=== PATIENT | male | born 1985 | race African-American/Black ===

== ENCOUNTER 2019-02-02 11:59 | Emergency (ER) | payer SELFPAY ==
[2019-02-02] MEDS ORDERED: LIDOCAINE 1% MPF 5 ML VIAL ONE (13:41)
[2019-02-02] MEDS ORDERED: CEPHALEXIN 250 MG CAP ONE (13:41)
[2019-02-02] MEDS ORDERED: SMZ./TMP. 800/160 MG TABLET ONE (13:42)
--- NOTE | 2019-02-02 14:09 | EDPHYS ---
Physician Documentation [facility] Name: Corky Barajas Age: 33 yrs Sex: Male : 1985 Arrival Date: 02/02/2019 Time: 12:02 Bed 30 Private MD: ED Physician Ulisses Wong HPI: 02/02 13:23 This 33 yrs old Black Male presents to ER via Ambulatory with complaints of Insect Bite.kb 13:23 The patient presents with an abscess of the left axilla. Description: draining, kb erythematous, swollen, warm. Onset: The symptoms/episode began/occurred 3 day(s) ago. Possible cause(s): unknown. Associated signs and symptoms: Pertinent positives: drainage, erythema, swelling. Modifying factors: the symptoms are alleviated by nothing, the symptoms are aggravated by movement, pressure, squeezing the lesion and expressing the contents, touching. Severity of symptoms: At their worst the symptoms were moderate, in the emergency department the symptoms are unchanged. The patient has not experienced similar symptoms in the past. The patient has not recently seen a physician. Historical: - Allergies: 12:07 No Known Allergies; aj1 - Home Meds: 12:07 None [Active]; aj1 - PMHx: 12:07 None; aj1 - PSHx: 12:07 None; aj1 - Immunization history:: Flu vaccine is up to date. - Social history:: Smoking status: Patient uses tobacco products, smokes one-half pack cigarettes per day. - Ebola Screening: : Patient denies travel to an Ebola-affected area in the 21 days before illness onset. ROS: 13:22 Constitutional: Negative for fever, chills, and weight loss, Neck: Negative for injury, kb pain, and swelling, Cardiovascular: Negative for chest pain, palpitations, and edema, Respiratory: Negative for shortness of breath, cough, wheezing, and pleuritic chest pain, Abdomen/GI: Negative for abdominal pain, nausea, vomiting, diarrhea, and constipation, : Negative for injury, bleeding, discharge, and swelling, MS/Extremity: Negative for injury and deformity, Neuro: Negative for headache, weakness, numbness, tingling, and seizure. 13:22 Skin: Positive for abscess, of the left axilla. Exam: 13:22 Constitutional: This is a well developed, well nourished patient who is awake, alert, kb and in no acute distress. Head/Face: Normocephalic, atraumatic. Neck: Trachea midline, no thyromegaly or masses palpated, and no cervical lymphadenopathy. Supple, full range of motion without nuchal rigidity, or vertebral point tenderness. No Meningismus. Chest/axilla: Normal chest wall appearance and motion. Nontender with no deformity. No lesions are appreciated. Cardiovascular: Regular rate and rhythm with a normal S1 and S2. No gallops, murmurs, or rubs. Normal PMI, no JVD. No pulse deficits. Respiratory: Lungs have equal breath sounds bilaterally, clear to auscultation and percussion. No rales, rhonchi or wheezes noted. No increased work of breathing, no retractions or nasal flaring. Abdomen/GI: Soft, non-tender, with normal bowel sounds. No distension or tympany. No guarding or rebound. No evidence of tenderness throughout. MS/ Extremity: Pulses equal, no cyanosis. Neurovascular intact. Full, normal range of motion. Neuro: Awake and alert, GCS 15, oriented to person, place, time, and situation. Cranial nerves II-XII grossly intact. Motor strength 5/5 in all extremities. Sensory grossly intact. Cerebellar exam normal. Normal gait. 13:22 Skin: abscess, that is moderate sized, of the left axilla, with drainage, with fluctuance, with induration. Vital Signs: 12:07 BP 144 / 91; Pulse 70; Resp 18; Temp 97.5; Pulse Ox 97% on R/A; Weight 98.88 kg (R); aj1 Height 6 ft. 2 in. (187.96 cm) (R); 14:09 BP 121 / 92; Pulse 72; Resp 16 S; Temp 97.9(O); Pulse Ox 98% on R/A; ca1 12:07 Body Mass Index 27.99 (98.88 kg, 187.96 cm) aj1 Procedures: 14:07 I \T\ D: Incision and drainage was performed for an abscess of the left axilla. Prepped kb with Betadine, Anesthetized with 2 ml's 1% Lidocaine. Incised with #11 blade. Drained moderate amount purulent fluid. Packed with iodoform gauze, Dressing: sterile 4x4 gauze, the patient tolerated the procedure well. MDM: 13:01 Patient medically screened. kb 13:22 Data reviewed: vital signs, nurses notes. Data interpreted: Pulse oximetry: on room air kb is 97 %. Interpretation: normal. ED course: Moderate amount of purulent drainage expressed before I\T\D. Still moderate fluctuance. . 14:07 Counseling: I had a detailed discussion with the patient and/or guardian regarding: the kb historical points, exam findings, and any diagnostic results supporting the discharge/admit diagnosis, the need for outpatient follow up, a general surgeon, to return to the emergency department if symptoms worsen or persist or if there are any questions or concerns that arise at home. 02/02 13:08 Order name: Wound Culture 02/02 13:21 Order name: I\T\D Setup; Complete Time: 13:24 kb Administered Medications: 13:29 Drug: Bactrim (160 mg-800 mg (DS) 1 tablet Route: PO; ca1 14:08 Follow up: Response: No adverse reaction ca1 13:29 Drug: KeFLEX 500 mg Route: PO; ca1 14:08 Follow up: Response: No adverse reaction ca1 14:07 Drug: Lidocaine (1 %) 5 mg {Note: Aministered by NP. Vidhi} Route: Infiltration; ca1 Disposition: 14:34 Co-signature as Attending Physician, Ulisses Wong MD. rn Disposition: 02/02/19 14:08 Discharged to Home. Impression: Cutaneous abscess of left axilla. - Condition is Stable. - Discharge Instructions: Skin Abscess, [id number], Incision and Drainage, Care After. - Prescriptions for Keflex 500 mg Oral Capsule - take 1 capsule by ORAL route every 8 hours for 10 days; 30 capsule. Bactrim DS 800- 160 mg Oral Tablet - take 1 tablet by ORAL route every 12 hours for 10 days; 20 tablet. Tramadol 50 mg Oral Tablet - take 1 tablet by ORAL route every 8 hours as needed; 12 tablet. - Medication Reconciliation Form, Thank You Letter, Antibiotic Education, Prescription Opioid Use form. - Follow up: Emergency Department; When: As needed; Reason: Worsening of condition. Follow up: Private Physician; When: 2 - 3 days; Reason: Recheck today's complaints, Continuance of care, Re-evaluation by your physician. Signatures: Dispatcher [employer] EDVdihi Wagner GLUE MILL OPERATOR-C GLUE MILL OPERATOR-CkKathie Molina, RN RN aj1 Ulisses Wong MD MD rn Acob, MARIA INES Larson RN ca1 Corrections: (The following items were deleted from the chart) 14:14 14:08 02/02/2019 14:08 Discharged to Home. Impression: Cutaneous abscess of left ca1 axilla. Condition is Stable. Forms are Medication Reconciliation Form, Thank You Letter, Antibiotic Education, Prescription Opioid Use. Follow up: Emergency Department; When: As needed; Reason: Worsening of condition. Follow up: Private Physician; When: 2 - 3 days; Reason: Recheck today's complaints, Continuance of care, Re-evaluation by your physician. kb
--- NOTE | 2019-02-02 14:09 | ER ---
Nurse's Notes [facility] Name: Corky Barajas Age: 33 yrs Sex: Male : 1985 Arrival Date: 02/02/2019 Time: 12:02 Bed 30 Private MD: Diagnosis: Cutaneous abscess of left axilla Presentation: 02/02 12:05 Presenting complaint: Patient states: "My arm is swollen. I've been having this pain aj1 for 3 days, I don't know if its a spider bite of what" Abscess noted to left axilla. Denies any drainage, fever. Transition of care: patient was not received from another setting of care. Onset of symptoms was January 2019. Risk Assessment: Do you want to hurt yourself or someone else? Patient reports no desire to harm self or others. Initial Sepsis Screen: Does the patient meet any 2 criteria? No. Patient's initial sepsis screen is negative. Does the patient have a suspected source of infection? No. Patient's initial sepsis screen is negative. Care prior to arrival: None. 12:05 Method Of Arrival: Ambulatory aj1 12:05 Acuity: TICO 4 aj1 Triage Assessment: 12:07 General: Appears in no apparent distress. uncomfortable, Behavior is calm, cooperative, aj1 appropriate for age. Pain: Complains of pain in left axilla Pain currently is 7 out of 10 on a pain scale. Neuro: Level of Consciousness is awake, alert, obeys commands, Oriented to person, place, time, situation. Cardiovascular: Patient's skin is warm and dry. Respiratory: Airway is patent Respiratory effort is even, unlabored, Respiratory pattern is regular, symmetrical. 13:36 Bite description: bite sustained to left axilla by. ca1 13:37 Bite description: animal information: vaccination(s). ca1 Historical: - Allergies: 12:07 No Known Allergies; aj1 - Home Meds: 12:07 None [Active]; aj1 - PMHx: 12:07 None; aj1 - PSHx: 12:07 None; aj1 - Immunization history:: Flu vaccine is up to date. - Social history:: Smoking status: Patient uses tobacco products, smokes one-half pack cigarettes per day. - Ebola Screening: : Patient denies travel to an Ebola-affected area in the 21 days before illness onset. Screenin:10 Abuse screen: Denies threats or abuse. Denies injuries from another. Nutritional ca1 screening: No deficits noted. Tuberculosis screening: No symptoms or risk factors identified. Fall Risk None identified. Assessment: 13:10 General: Appears in no apparent distress. comfortable, Behavior is calm, cooperative, ca1 appropriate for age. Pain: Complains of pain in left arm and left axilla Pain currently is 5 out of 10 on a pain scale. Pain began 2-3 days ago. Neuro: Level of Consciousness is awake, alert, obeys commands, Oriented to person, place, time, situation. Cardiovascular: Heart tones S1 S2 present Capillary refill < 3 seconds Patient's skin is warm and dry. Respiratory: Airway is patent Respiratory effort is even, unlabored, Respiratory pattern is regular, symmetrical, Breath sounds are clear bilaterally. GI: Abdomen is flat, non-distended, Bowel sounds present X 4 quads. Abd is soft and non tender X 4 quads. : No deficits noted. No signs and/or symptoms were reported regarding the genitourinary system. EENT: No deficits noted. No signs and/or symptoms were reported regarding the EENT system. Derm: Skin is healthy with good turgor, Skin is pink, warm \\T\\ dry. Abscess located on left axilla is nickel sized, has purulent drainage. Musculoskeletal: Circulation, motion, and sensation intact. Capillary refill < 3 seconds, Range of motion: intact in all extremities. 14:09 Reassessment: Patient appears in no apparent distress at this time. Patient is alert, ca1 oriented x 3, equal unlabored respirations, skin warm/dry/pink. Vital Signs: 12:07 BP 144 / 91; Pulse 70; Resp 18; Temp 97.5; Pulse Ox 97% on R/A; Weight 98.88 kg (R); aj1 Height 6 ft. 2 in. (187.96 cm) (R); 14:09 BP 121 / 92; Pulse 72; Resp 16 S; Temp 97.9(O); Pulse Ox 98% on R/A; ca1 12:07 Body Mass Index 27.99 (98.88 kg, 187.96 cm) aj1 ED Course: 12:02 Patient arrived in ED. mr 12:07 Triage completed. aj1 12:07 Arm band placed on Patient placed in waiting room, Patient notified of wait time. aj1 13:00 Lanette De Dios, RN is Primary Nurse. 13:01 Vidhi Jack FNP-C [facility]. kb 13:01 Ulisses Wong MD is Attending Physician. kb 13:07 Primary Nurse role handed off by Lanette De Dios, MARIA INES ca1 13:07 Marsha Valdez, MARIA INES is Primary Nurse. ca1 13:10 Patient has correct armband on for positive identification. Bed in low position. Call ca1 light in reach. Side rails up X 1. Pulse ox on. NIBP on. 14:00 Assist provider with I \\T\\ D: of an abscess on left axilla Set up I\\T\\D tray. Performed by ca 1 Vidhi BARNHART Culture sent to lab. Wound packed. iodoform gauze, Dressing with 4X4s, tape Patient tolerated well. Patient did not have IV access during this emergency room visit. Administered Medications: 13:29 Drug: Bactrim (160 mg-800 mg (DS) 1 tablet Route: PO; ca1 14:08 Follow up: Response: No adverse reaction ca1 13:29 Drug: KeFLEX 500 mg Route: PO; ca1 14:08 Follow up: Response: No adverse reaction ca1 14:07 Drug: Lidocaine (1 %) 5 mg {Note: Aministered by SANDRA Mohser.} Route: Infiltration; ca1 Outcome: 14:08 Discharge ordered by . kb 14:13 Discharged to home ambulatory. ca1 14:13 Condition: stable 14:13 Discharge instructions given to patient, Instructed on discharge instructions, follow up and referral plans. medication usage, wound care, Demonstrated understanding of instructions, follow-up care, medications, Prescriptions given X 3. 14:14 Patient left the ED. ca1 Signatures: Vidhi Jack FNP-C FNP-Lanette Hernandez, RN Kathie Torres ch, RN RN Emilie Mcneill mr Marsha Valdez RN RN ca1
[2019-02-02 14:23] VITALS: BP 121/92; TEMP 97.9; O2SAT 98
== END 2019-02-02 14:14 | disposition home or self-care (01) ==
LOC: ER 11:59
PROC: 0J9F0ZZ Drainage of Left Upper Arm Subcutaneous Tissue and Fascia, Open Approach (ICD-10-PCS; principal; 2019-02-02)
DX: L02.412 Cutaneous abscess of left axilla (principal); F17.210 Nicotine dependence, cigarettes, uncomplicated
CPT/HCPCS: 87070; 87205; 99284